=== PATIENT | female | born 1965 | race Caucasian/White ===

== ENCOUNTER 2018-08-03 09:57 | Emergency (ER) | payer OTHER ==
[2018-08-03 10:05] VITALS: BP 98/67; PULSE 61; TEMP 97.9; BMI 23.2
[2018-08-03] MEDS ORDERED: LIDOCAINE HCL 1%, 10 MG/ML (50 mL VIAL) IO ONE (12:28)
[2018-08-03] MEDS ORDERED: LIDOCAINE HCL/PF 1% SDV 5ML VIAL ONE (12:31)
--- NOTE | 2018-08-03 13:50 | PDOC ---
History of Present Illness - General Chief Complaint: Injury Stated Complaint: LT HAND INJURY Time Seen by Provider: 08/03/18 10:36 - History of Present Illness Initial Comments: 53-year-old female without comorbidities presents for evaluation of left wrist pain after falling on an outstretched hand. No loss of consciousness she did not hit her head. Her only complaint is left wrist pain. 08/03/18 13:46 Past History - Past Medical History Allergies/Adverse Reactions: Allergies Allergy/AdvReac Type Severity Reaction Status Date / Time No Known Allergies Allergy Verified 08/03/18 10:05 Home Medications: Ambulatory Orders NK [No Known Home Medication] 08/03/18 - Suicide/Smoking/Psychosocial Hx Smoking History: Never smoked Have you smoked in the past 12 months: No Information on smoking cessation initiated: No Hx Alcohol Use: No Drug/Substance Use Hx: No Review of Systems - Review of Systems Musculoskeletal: Yes: Joint Pain All Other Systems: Reviewed and Negative *Physical Exam - Vital Signs Last Vital Signs Temp Pulse Resp BP Pulse Ox 97.9 F 61 16 98/67 97 08/03/18 10:03 08/03/18 10:03 08/03/18 10:03 08/03/18 10:03 08/03/18 10:03 - Physical Exam Comments: Left first skin color and temperature are normal. There is alert deformity at the distal radius apex volarly about 30. She's neurovascularly intact. She has no gross sensory motor deficits. Appropriate tenderness at the distal radius 08/03/18 13:47 ED Treatment Course - RADIOLOGY Radiology Studies Ordered: Category Date Time Status WRIST-LEFT [RAD] Stat Radiology 08/03/18 12:10 Completed WRIST-LEFT [RAD] Stat Radiology 08/03/18 13:27 Taken - Medications Given in the ED: ED Medications Discontinued Medications Generic Name Dose Route Start Last Admin Trade Name Freq PRN Reason Stop Dose Admin Lidocaine HCl 10 ml 08/03/18 12:28 08/03/18 12:56 Xylocaine 1% IO 08/03/18 12:29 10 ml ONCE ONE Administration Medical Decision Making - Medical Decision Making Under aseptic technique, 6 mL of 1% lidocaine was injected into the fracture hematoma. This was tolerated well. Gentle traction and countertraction was applied to the area of the fracture and the fracture was reduced. Postreduction x-rays showed anatomic fracture reduction.I have discussed this case with hand surgery who will come down and evaluate the patient in the emergency room as well. 08/03/18 13:48 *DC/Admit/Observation/Transfer Diagnosis at time of Disposition: Wrist fracture, left - Discharge Dispostion Disposition: HOME Condition at time of disposition: Stable Decision to Admit order: No - Referrals Referrals: Fernando Collazo MD [Primary Care Provider] - Farrukh Coronel MD [Staff Physician] - - Patient Instructions Printed Discharge Instructions: DI for Wrist Fracture, Wrist Fracture Additional Instructions: Return to the emergency room should symptoms worsen ago unresolved. Please keep the splint on and in place until seen by hand surgery. Follow-up with hand surgery as scheduled. He may take Tylenol and Motrin as directed for pain. - Post Discharge Activity
--- NOTE | 2018-08-03 14:19 | CONSULT ---
Consult Consult Specialty:: Hand Surgery Referred by:: Kailash BAUM Reason for Consultation:: Left wrist fracture - History of Present Illness Chief Complaint: Left wrist fracture History of Present Illness: 53 yo female PMH without comorbidities presents for evaluation of left wrist pain after falling on an outstretched hand. No loss of consciousness she did not hit her head. Her only complaint is left wrist pain. We were asked to assess. - History Source History Provided By: Patient, Medical Record Limitations to Obtaining History: No Limitations - Alcohol/Substance Use Hx Alcohol Use: No - Smoking History Smoking history: Never smoked Have you smoked in the past 12 months: No - Social History Usual Living Arrangement: With Spouse Place of : Other History of Recent Travel: Yes Home Medications - Allergies Allergies/Adverse Reactions: Allergies Allergy/AdvReac Type Severity Reaction Status Date / Time No Known Allergies Allergy Verified 08/03/18 10:05 - Home Medications Home Medications: Ambulatory Orders NK [No Known Home Medication] 08/03/18 Review of Systems - Review of Systems Constitutional: denies: Chills, Fever, Loss of Appetite Eyes: denies: Blind Spots, Recent Change in Vision HENT: denies: Difficult Swallowing, Throat Pain Neck: denies: Lumps, Tenderness Cardiovascular: denies: Chest Pain, Other Respiratory: denies: Cough, SOB Gastrointestinal: denies: Abdominal Pain, Constipation, Diarrhea, Nausea Genitourinary: denies: Dysuria, Flank Pain Breasts: reports: No Symptoms Reported. denies: Pain Musculoskeletal: denies: Back Pain, Muscle Pain Integumentary: denies: Lesions, Rash Neurological: denies: Confusion, Seizure, Syncope Endocrine: denies: Unexplained Weight Gain, Unexplained Weight Loss Hematology/Lymphatic: denies: Easily Bruised, Excessive Bleeding Psychiatric: denies: Anxiety, Depression Physical Exam Vital Signs: Vital Signs Temperature 97.9 F 08/03/18 10:03 Pulse Rate 61 08/03/18 10:03 Respiratory Rate 16 08/03/18 10:03 Blood Pressure 98/67 08/03/18 10:03 O2 Sat by Pulse Oximetry (%) 97 08/03/18 10:03 Constitutional: Yes: Well Nourished, Calm, Mild Distress, Thin Eyes: Yes: Conjunctiva Clear, EOM Intact HENT: Yes: Atraumatic, Normocephalic Neck: Yes: Supple, Trachea Midline Cardiovascular: Yes: Regular Rate and Rhythm, S1, S2 Respiratory: Yes: Regular, CTA Bilaterally Gastrointestinal: Yes: Normal Bowel Sounds, Soft. No: Tenderness, Tenderness, Epigastrium ...Rectal Exam: Yes: Deferred Renal/: No: CVA Tenderness - Left, CVA Tenderness - Right Musculoskeletal: No: Muscle Pain, Muscle Weakness Extremities: Yes: Other (Left wrist bruising and swelling dorsally with defomity.). No: Cool, Cyanosis Edema: Yes Edema: LUE: 3+ Peripheral Pulses WNL: Yes Integumentary: No: Jaundice, Rash Wound/Incision: Yes: Clean/Dry, Well Approximated, Dressing Dry and Intact Neurological: Yes: Alert, Oriented Psychiatric: Yes: Alert, Oriented Imaging - Results X-ray: Report Reviewed, Image Reviewed (pre and post reducation left distal colles fracture radius) Problem List - Problems (1) Wrist fracture, left Assessment/Plan: 53yo female with left colles type DRF, cast immobilization Reduced in ED, confirmed post reduction films Thumb spica splint applied f/u in 2 weeks Thank you for the opportunity to participate in the care of this patient. Code(s): S62.102A - FRACTURE OF UNSP CARPAL BONE, LEFT WRIST, INIT FOR CLOS FX Qualifiers: Encounter type: initial encounter Fracture type: open Qualified Code(s): S62.102B - Fracture of unspecified carpal bone, left wrist, initial encounter for open fracture
== END 2018-08-03 14:10 | disposition home or self-care (01) ==
LOC: JERFT 09:57
PROC: 0PSJXZZ Reposition Left Radius, External Approach (ICD-10-PCS; principal; 2018-08-03)
DX: S52.592A Other fractures of lower end of left radius, initial encounter for closed fracture (principal); W18.39XA Other fall on same level, initial encounter; Y93.89 Activity, other specified; Y92.89 Other specified places as the place of occurrence of the external cause
CPT/HCPCS: 25605; 73110-TC-LR-FY; 99282-25